=== PATIENT | female | born 1960 | race Caucasian/White ===

== ENCOUNTER 2022-02-03 00:11 | Day surgery (SDC) | payer OTHER, SELFPAY ==
[2022-01-18 15:18] VITALS: BMI 30.6
--- NOTE | 2022-02-03 09:10 | WPDANESEPPF ---
Anes - Initial Pre Proc Eval Procedure: Operation Date: 02/03/22 10:45 Proposed Procedures p Esophagogastroduodenoscopy & Colonoscopy - Jim Archer MD Date/Time: 02/03/22 09:10 Surgeon: Jim Archer MD Pre Op Diagnosis: diarrhea, nausea Patient Data Age: 61 Gender: F Height: 1.68 m Weight: 86 kg Allergies Allergy/AdvReac Type Severity Reaction Status Date / Time No Known Allergies Allergy Verified 02/03/22 09:27 Home Medications Medication Instructions Recorded Confirmed Type enalapril maleate 10 mg tablet 10 mg PO DAILY 12/17/21 02/03/22 History escitalopram oxalate 10 mg tablet 10 mg PO DAILY 12/17/21 02/03/22 History metoprolol succinate 50 mg 50 mg PO DAILY 12/17/21 02/03/22 History tablet,extended release 24 hr triamterene 50 mg capsule 50 mg PO DAILY 12/17/21 02/03/22 History Patient hx anesthesia problems: none Family hx anesthesia problems: none Results Review: All pre-operative results and documents have been reviewed as part of the pre-operative evaluation. [facility] Past Medical History Medical History (Updated 02/03/22 @ 09:11 by Rosales Paul MD) Allergies Anxiety and depression Heart disease Hypertension MVP (mitral valve prolapse) Nausea Obesity Skin cancer Social History Social History (Updated 12/17/21 @ 14:43 by Angélica Mahoney CMA) Smoking status: Never smoker Alcohol intake: current Alcohol use details: socially Substance use: never Substance use type: does not use Living arrangements: alone Spiritual care concerns: No Anes - Eval Final PreProcedure Day of Procedure 02/03/22 09:10 Patient weight: obese Heart: regular rate and rhythm Lungs: clear to auscultation and normal air movement Airway: Mallampati scale class II Neurological: alert and oriented Last oral intake: >/= 8 hours ASA classification: III Emergent: no Anesthetic plan: proceed Anesthesia type and monitoring: general GIVS Results Review: All pre-operative results and documents have been reviewed as part of the pre-operative evaluation. Informed Consent: The patient's anesthetic plan and its attendant risks and benefits were discussed with the patient/family/POA. Questions were solicited and answers provided to the satisfaction of the patient/family/POA.
[2022-02-03 09:28] VITALS: BP 149/90; PULSE 81; RESP 20; TEMP 37.4; O2SAT 100; BMI 30.6
[2022-02-03] MEDS: LACTATED RINGERS 1,000 ML 150 ML IV CONT (09:32)
--- NOTE | 2022-02-03 10:27 | PM.HPGS ---
History of Present Illness History of Present Illness Consent: Risks, benefits, and alternatives have been discussed and questions answered. Patient agrees to proceed with procedure. Chief complaint: diarrhea, nausea Narrative: Mitzi De La Rosa is a 61 year old female with loose stool in the mornings and also nausea for years, never had EGD. She had screening colonoscopy at 53 yo with polyp. Grandparent and uncle with colon cancer. Review of Systems Constitutional: Constitutional: Denies headache(s) and Denies weakness Eyes: Eyes: Denies blurry vision ENT: Reports Normal hearing present, Denies headache(s) and Denies neck pain Cardiovascular: Cardiovascular: Denies chest pain and Denies dyspnea Respiratory: Respiratory: Denies dyspnea Gastrointestinal: Gastrointestinal: Reports no additional gastrointestinal complaints Genitourinary: Genitourinary: Denies dysuria Musculoskeletal: Musculoskeletal: Denies neck pain Integumentary/Breasts: Skin/Breast: Denies dry skin Neurologic: Reports Normal hearing present, Denies headache(s) and Denies weakness Psychiatric: Psychiatric: Denies anxiety Endocrine: Endocrine: Denies change in body appearance Hematologic/Lymphatic: Hematologic/Lymphatic: Denies easy bleeding Allergic/Immunologic: Allergic/Immunologic: Denies urticaria PMFSH Past Medical History Medical History (Updated 02/03/22 @ 10:29 by Jim Archer MD) Allergies Anxiety and depression Family history of colon cancer Heart disease Hypertension Loose stools MVP (mitral valve prolapse) Nausea Obesity Skin cancer Social History Social History (Updated 12/17/21 @ 14:43 by Angélica Mahoney CMA) Smoking status: Never smoker Alcohol intake: current Alcohol use details: socially Substance use: never Substance use type: does not use Living arrangements: alone Spiritual care concerns: No Meds Home Medications and Allergies Home Medications Medication Instructions Recorded Confirmed Type enalapril maleate 10 mg tablet 10 mg PO DAILY 12/17/21 02/03/22 History escitalopram oxalate 10 mg tablet 10 mg PO DAILY 12/17/21 02/03/22 History metoprolol succinate 50 mg 50 mg PO DAILY 12/17/21 02/03/22 History tablet,extended release 24 hr triamterene 50 mg capsule 50 mg PO DAILY 12/17/21 02/03/22 History Allergies Allergy/AdvReac Type Severity Reaction Status Date / Time No Known Allergies Allergy Verified 02/03/22 09:27 Vital Signs Vital Signs - 24 hr 02/03/22 09:28 Temperature 99.3 F Pulse Rate 81 Respiratory Rate 20 Blood Pressure 149/90 H Pulse Oximetry 100 Exam Const: General: comfortable and no acute distress HENMT: General nose exam: Normal nares present Eyes: General: appearance normal, both eyes and all related structures Neck: Neck: no JVD Resp: Auscultation: clear to auscultation bilaterally Cardio: Rate: regular rate Rhythm: regular rhythm GI: Inspection: non-distended GI Palp: Yes Soft to palpation Skin: General skin exam: normal color Neuro: General: gait normal Speech: normal speech Extrem: General: normal to inspection Psych: Mental Status: mental status grossly normal Assessment and Plan Assessment and plan (1) Nausea: Code(s): R11.0 - Nausea Status: Acute Assessment and Plan: egd with bx (2) Loose stools: Code(s): R19.5 - Other fecal abnormalities Status: Acute Assessment and Plan: colonoscopy, consider random bx (3) Family history of colon cancer: Code(s): Z80.0 - Family history of malignant neoplasm of digestive organs Status: Acute
[2022-02-03] MEDS: BENZOCAINE (*SP) 60 ML SPRAY CAN (HURRICAINE) 1 SPRAY MUCOUS MEM (10:35)
--- NOTE | 2022-02-03 10:46 | SUR.OPER ---
EGD ENDED AT 1041, COLONOSCOPY BEGAN AT 1045.
[2022-02-03 10:58] VITALS: BP 126/74; PULSE 64; RESP 16; O2SAT 100
[2022-02-03 11:08] VITALS: BP 130/75; PULSE 64; RESP 17; O2SAT 99
[2022-02-03 11:18] VITALS: BP 147/83; PULSE 61; RESP 13; O2SAT 100
== END 2022-02-03 11:21 | disposition home or self-care (01) ==
PROVIDERS: PCP Family Medicine; Visit Provider Internal Medicine Gastroenterology
PROC: 0DJ08ZZ Inspection of Upper Intestinal Tract, Via Natural or Artificial Opening Endoscopic (ICD-10-PCS; CPT 43235; principal; 2022-02-03 10:45)
DX: R19.7 Diarrhea, unspecified (principal); K57.30 Diverticulosis of large intestine without perforation or abscess without bleeding; K64.8 Other hemorrhoids; Z80.0 Family history of malignant neoplasm of digestive organs; R11.0 Nausea; Z86.010 Personal history of colon polyps; I11.9 Hypertensive heart disease without heart failure; I34.1 Nonrheumatic mitral (valve) prolapse; F41.8 Other specified anxiety disorders; E66.9 Obesity, unspecified; Z68.30 Body mass index [BMI] 30.0-30.9, adult
CPT/HCPCS: 45380; 43239; 88305; J2704; J7120